=== PATIENT | female | born 1950 | race Caucasian/White ===

== ENCOUNTER → 2018-07-12 | Outpatient (CLI) | payer MEDICARE ==
[2018-07-12 19:09] LABS: Vitamin D 25 Hydroxy 35.2 ng/mL (30.0-100.0)
== END | disposition home or self-care (01) ==
LOC: LABWHC1 14:56
PROVIDERS: ATTEND Psychiatry & Neurology Neurology
DX: M79.10 Myalgia, unspecified site (principal); R53.83 Other fatigue; R41.3 Other amnesia; G62.9 Polyneuropathy, unspecified
CPT/HCPCS: 36415; 82306; 82607; 82747

== ENCOUNTER → 2018-08-15 | Outpatient (CLI) | payer MEDICARE ==
--- NOTE | 2018-08-15 20:37 | MR ---
EXAMINATION TYPE: MR brain wo con DATE OF EXAM: 08/15/2018 COMPARISON: None HISTORY: Memory loss, vertigo CONTRAST: Performed utilizing 0 mL intravenous Gadavist gadolinium contrast. TECHNIQUE: Multiplanar, multiecho imaging on a 3.0 Fátima magnet is performed through the brain. Stud y is performed within 24 hours of arrival to the hospital. The craniovertebral junction is normal. The pituitary is normal. Diffusion-weighted imaging is performed. No abnormal hyperintensity is present to suggest an acute i ntracranial infarct or acute ischemic change. There are multiple scattered subcortical white matter changes within the bilateral cerebral hemispher es. The largest in the right centrum semiovale measures 0.5 cm. Findings are nonspecific. Differentia l could include microvascular ischemic change. Vasculitis, multiple sclerosis, Lyme disease could be considered. This may be somewhat greater than expected for typical migraine headaches. Ventricles and sulci are appropriate for the patient age. Paranasal sinuses and mastoid air cells within the [id number] are clear. IMPRESSIONS: 1. Scattered punctate white matter changes most likely on the basis of chronic white matter ischemic change. Differential diagnosis is discussed above.
== END | disposition home or self-care (01) ==
LOC: RADMRIMAIN 17:03
PROVIDERS: ATTEND Psychiatry & Neurology Neurology
DX: R90.82 White matter disease, unspecified (principal)
CPT/HCPCS: 70551

== ENCOUNTER → 2018-12-28 | Outpatient (CLI) | payer MEDICARE ==
--- NOTE | 2018-12-29 13:39 | MM ---
Reason for exam: screening (asymptomatic). Last mammogram was performed 6 years and 2 months ago. History: Patient is postmenopausal and history of other cancer. Physical Findings: A clinical breast exam by your physician is recommended on an annual basis and results should be correlated with mammographic findings. MG 3D Screening Mammo W/Cad Bilateral CC and MLO view(s) were taken. Prior study comparison: November 01, 2012, bilateral digital screening mammo w/CAD. May 01, 2009, right breast mammogram dig work up. There are scattered fibroglandular densities. No significant changes when compared with prior studies. ASSESSMENT: Benign, BI-RAD 2 RECOMMENDATION: Routine screening mammogram of both breasts in 1 year.
== END ==
LOC: RADMAMWWP 14:49
PROVIDERS: ATTEND Family Medicine
DX: Z12.31 Encounter for screening mammogram for malignant neoplasm of breast (principal)
CPT/HCPCS: 77063; 77067

== ENCOUNTER 2019-07-31 13:12 | Emergency (ER) | payer MEDICARE ==
[2019-07-31] MEDS ORDERED: MORPHINE SULFATE 4 MG/ML SYRINGE IVP STA (14:12)
[2019-07-31] MEDS ORDERED: SODIUM CHLORIDE 0.9% 500 ML 500 ML IV ONE (14:12)
--- NOTE | 2019-07-31 14:28 | ED ---
General Adult HPI - General Chief complaint: Nausea/Vomiting/Diarrhea Stated complaint: diarrhea Time Seen by Provider: 07/31/19 13:58 Source: patient, RN notes reviewed, old records reviewed Mode of arrival: ambulatory Limitations: no limitations - History of Present Illness Initial comments: 69 -year-old female presenting with acute exacerbation of chronic diarrhea. Patient states that for the past 1 week she's had significant watery diarrhea with any food or liquid ingested. No fever. She's had mild crampy abdominal pain. No vomiting. She's had intermittent diarrhea for the past one year. She's been seen by gastroenterology with both upper and lower endoscopy. No fever or chills. No dysuria. No significant pain complaints. No recent antibiotics. - Related Data Home Medications Medication Instructions Recorded Confirmed Levothyroxine Sodium [Synthroid] 1 tab PO DAILY 05/15/15 05/15/15 Omeprazole 1 tab PO DAILY 05/15/15 05/15/15 Pravastatin Sodium [Pravachol] 1 tab PO HS 05/15/15 05/15/15 Valsartan/Hydrochlorothiazide 1 tab PO DAILY 05/15/15 05/15/15 [Diovan Hct 320-12.5 mg Tab] Venlafaxine HCl ER [Effexor XR] 1 tab PO DAILY 05/15/15 05/15/15 amLODIPine BESYLATE [Norvasc] 1 tab PO DAILY 05/15/15 05/15/15 glipiZIDE/METFORMIN HCL 1 tab PO HS 05/15/15 05/15/15 [glipiZIDE/METFORMIN HCL 5-500 mg] metFORMIN HCL [Glucophage Xr] 1 tab PO DAILY 05/15/15 05/15/15 Previous Rx's Medication Instructions Recorded Ciprofloxacin HCl [Cipro] 500 mg PO Q12HR #14 tablet 05/15/15 Ondansetron Odt [Zofran ODT] 4 mg PO Q8HR PRN #5 tab 05/15/15 Acetaminophen with Codeine 1 tab PO Q6H PRN 3 Days #12 tab 07/31/19 [Tylenol w/codeine #3] Allergies Allergy/AdvReac Type Severity Reaction Status Date / Time No Known Allergies Allergy Verified 07/31/19 13:31 Review of Systems ROS Statement: Those systems with pertinent positive or pertinent negative responses have been documented in the HPI. ROS Other: All systems not noted in ROS Statement are negative. Past Medical History Past Medical History: Diabetes Mellitus, Hyperlipidemia, Hypertension, Thyroid Disorder History of Any Multi-Drug Resistant Organisms: None Reported Past Surgical History: Appendectomy, Cholecystectomy, Hernia Repair, Hysterectomy, Joint Replacement, Orthopedic Surgery Additional Past Surgical History / Comment(s): thyroid, carpal tunnel Past Psychological History: No Psychological Hx Reported Smoking Status: Never smoker Past Alcohol Use History: None Reported Past Drug Use History: None Reported General Exam Limitations: no limitations General appearance: alert, in no apparent distress Head exam: Present: atraumatic, normocephalic Eye exam: Present: normal appearance, PERRL ENT exam: Present: mucous membranes dry Neck exam: Present: normal inspection. Absent: tenderness, meningismus Respiratory exam: Present: normal lung sounds bilaterally. Absent: respiratory distress, wheezes Cardiovascular Exam: Present: regular rate, normal rhythm GI/Abdominal exam: Present: soft. Absent: distended, tenderness, guarding, rebound Extremities exam: Present: normal inspection, normal capillary refill. Absent: pedal edema Neurological exam: Present: alert, oriented X3, CN II-XII intact. Absent: motor sensory deficit Skin exam: Present: warm, dry, intact. Absent: cyanosis, diaphoretic Course Vital Signs 07/31/19 13:26 Temperature 98.5 F Pulse Rate 74 Respiratory 18 Rate Blood Pressure 154/87 O2 Sat by Pulse 98 Oximetry Medical Decision Making - Medical Decision Making 69-year-old female with acute on chronic diarrhea. Patient appears well- hydrated, stable vitals. She has leukocytosis of 16.5, stable hemoglobin, she is acidotic with a CO2 of 17 likely secondary to diarrhea. C. diff is negative. She receives IV hydration. She is instructed on dietary measures to improve symptoms she will avoid dairy. She will see a high-fiber diet. She will take Tylenol 3 for decreased bowel motility. She will follow-up with her primary care physician and outside sales. - Lab Data Result diagrams: 07/31/19 14:13 07/31/19 13:46 Lab Results 07/31/19 07/31/19 07/31/19 Range/Units 13:40 13:46 14:13 WBC 16.5 H (3.8-10.6) k/uL RBC 5.59 H (3.80-5.40) m/uL Hgb 15.3 (11.4-16.0) gm/dL Hct 47.7 H (34.0-46.0) % MCV 85.3 (80.0-100.0) fL MCH 27.4 (25.0-35.0) pg MCHC 32.2 (31.0-37.0) g/dL RDW 15.1 (11.5-15.5) % Plt Count 414 (150-450) k/uL Neutrophils % 58 % Lymphocytes % 16 % Monocytes % 3 % Eosinophils % 22 % Basophils % 0 % Neutrophils # 9.6 H (1.3-7.7) k/uL Lymphocytes # 2.6 (1.0-4.8) k/uL Monocytes # 0.6 (0-1.0) k/uL Eosinophils # 3.6 H (0-0.7) k/uL Basophils # 0.0 (0-0.2) k/uL Manual Slide Review Performed Sodium 140 (137-145) mmol/L Potassium 4.2 (3.5-5.1) mmol/L Chloride 112 H (98-107) mmol/L Carbon Dioxide 17 L (22-30) mmol/L Anion Gap 11 mmol/L BUN 25 H (7-17) mg/dL Creatinine 0.80 (0.52-1.04) mg/dL Est GFR (CKD-EPI)AfAm 87 (>60 ml/min/1.73 sqM) Est GFR (CKD-EPI)NonAf 76 (>60 ml/min/1.73 sqM) Glucose 204 H (74-99) mg/dL Calcium 9.8 (8.4-10.2) mg/dL Total Bilirubin 0.5 (0.2-1.3) mg/dL AST 16 (14-36) U/L ALT 13 (4-34) U/L Alkaline Phosphatase 89 (38-126) U/L Total Protein 6.6 (6.3-8.2) g/dL Albumin 3.8 (3.5-5.0) g/dL C. difficile (EIA) Intrp Negative (Negative) Disposition Clinical Impression: Diarrhea Disposition: HOME SELF-CARE Condition: Good Instructions (If sedation given, give patient instructions): Acute Diarrhea (ED) Prescriptions: Acetaminophen with Codeine [Tylenol w/codeine #3] 1 tab PO Q6H PRN 3 Days #12 tab PRN Reason: Diarrhea Is patient prescribed a controlled substance at d/c from ED?: No Referrals: Jonatan Kline DO [Primary Care Provider] - 1-2 days Time of Disposition: 15:34
[2019-07-31 14:30] LABS: Basophils % (A) 0 %; Eosinophils # (A) 3.6 k/uL (0-0.7); Eosinophils % (A) 22 %; HCT 47.7 % (34.0-46.0); HGB 15.3 gm/dL (11.4-16.0); Lymphocytes # (A) 2.6 k/uL (1.0-4.8); Lymphocytes % (A) 16 %; MCH 27.4 pg (25.0-35.0); MCHC 32.2 g/dL (31.0-37.0); MCV 85.3 fL (80.0-100.0); Mean Platelet Volume 7.3; Monocytes # (A) 0.6 k/uL (0-1.0); Monocytes % (A) 3 %; Neutrophils # (A) 9.6 k/uL (1.3-7.7); Neutrophils % (A) 58 %; Platelet Count 414 k/uL (150-450); RBC 5.59 m/uL (3.80-5.40); RDW 15.1 % (11.5-15.5); WBC 16.5 k/uL (3.8-10.6)
[2019-07-31 14:53] LABS: Albumin 3.8 g/dL (3.5-5.0); Calcium 9.8 mg/dL (8.4-10.2); Potassium 4.2 mmol/L (3.5-5.1); Total Bilirubin 0.5 mg/dL (0.2-1.3); Total Protein 6.6 g/dL (6.3-8.2)
[2019-07-31 16:27] VITALS: BP 120/71; PULSE 54; RESP 16; TEMP 97.8
== END 2019-07-31 16:30 | disposition home or self-care (01) ==
LOC: EC 13:12
DX: R19.7 Diarrhea, unspecified (principal); D72.829 Elevated white blood cell count, unspecified; E87.2 Acidosis; E11.9 Type 2 diabetes mellitus without complications; E78.5 Hyperlipidemia, unspecified; I10 Essential (primary) hypertension; E07.9 Disorder of thyroid, unspecified; Z79.84 Long term (current) use of oral hypoglycemic drugs; Z79.899 Other long term (current) drug therapy; Z79.890 Hormone replacement therapy; Z90.49 Acquired absence of other specified parts of digestive tract
CPT/HCPCS: 36415; 80053; 85025; 87324; 96360; 99285